=== PATIENT | female | born 1940 | race Caucasian/White ===

== ENCOUNTER 2022-08-27 10:09 | Emergency (ER) | payer OTHER ==
[~2022-08-27] VITALS: Ht 149.9 cm; Wt 65.8 kg
[2022-08-27 10:10] VITALS: BP_SYST 109
[2022-08-27 11:06] LABS: EOSINOPHILS % (AUTO) 0.2 % (0.0-4.0); LYMPHOCYTES # (AUTO) 1.8 K/uL (1.0-5.5); LYMPHOCYTES % (AUTO) 87.6 % (20.5-51.5); MEAN CORPUSCULAR HEMOGLOBIN 35 pg (27-31); MEAN CORPUSCULAR HGB CONC 33 % (32-36); MEAN CORPUSCULAR VOLUME 106 fL (79.0-98.0); MONOCYTES # (AUTO) 0.1 K/uL (0.0-1.0); MONOCYTES % (AUTO) 2.9 % (1.7-9.3); NEUTROPHILS % (AUTO) 9.3 % (40.0-70.0); PLATELET COUNT (AUTO) 195 K/uL (130-430); WHITE BLOOD COUNT (AUTO) 2.1 K/uL (4.8-10.8)
[2022-08-27 11:10] LABS: NEUTROPHILS # (AUTO) 0.2 K/uL (1.8-7.7); RED BLOOD CELL COUNT(AUTO) 1.82 MIL/uL (4.2-6.2)
[2022-08-27 11:11] LABS: HEMATOCRIT 19.3 % (36-48); HEMOGLOBIN 6.3 g/dL (12.0-16.0)
[2022-08-27 11:53] LABS: ANION GAP 6 (5-15); CALCIUM 7.9 mg/dL (8.4-11.0); CHLORIDE 104 mmol/L (98-107); CREATININE 1.03 mg/dL (0.55-1.30); GLUCOSE 89 mg/dL (70-99); UREA NITROGEN, BLOOD 18 mg/dL (8-21)
[2022-08-27 12:19] LABS: ALANINE AMINOTRANSFERASE 7 U/L (12-78); ALBUMIN 2.2 g/dL (3.4-4.8); ASPARTATE AMINOTRANSFERASE 10 U/L (10-37); TOTAL BILIRUBIN 0.9 mg/dL (0.0-1.0)
[2022-08-27 14:32] LABS: BILIRUBIN,URINE 1+ (NEGATIVE); BLOOD, URINE NEGATIVE (NEGATIVE); CLARITY/URINE CLEAR (CLEAR); COLOR,URINE YELLOW (YELLOW); GLUCOSE,URINE NEGATIVE (NEGATIVE); KETONES,URINE NEGATIVE (NEGATIVE); LEUKOCYTE ESTERASE ,URINE NEGATIVE (NEGATIVE); NITRITE, URINE NEGATIVE (NEGATIVE); PROTEIN URINE NEGATIVE (NEGATIVE)
[2022-08-27 14:59] LABS: BACTERIA,URINE RARE /HPF (None Seen); CALCIUM OXALATE CRYSTALS,UR 0-10 /HPF (None Seen); RBC,URINE 0-3 /HPF (0-3); WBC,URINE 0-3 /HPF (0-3)
[2022-08-27 15:00] LABS: MUCUS,URINE None Seen /LPF (None Seen)
[2022-08-27 22:22] VITALS: BP_SYST 134
== END 2022-08-27 22:22 | disposition home or self-care (01) ==
LOC: SED 10:09
DX: D46.9 Myelodysplastic syndrome, unspecified (principal); R53.1 Weakness; Z88.0 Allergy status to penicillin; Z79.899 Other long term (current) drug therapy; Z20.822 Contact with and (suspected) exposure to COVID-19
CPT/HCPCS: 99285; 71045; 87426; 80053; 81000; 85025; 86886; 86900; 86901; 87040; 86920; 36415; 93005; 83605; P9021